=== PATIENT | female | born 1985 | race Caucasian/White ===

== ENCOUNTER → 2017-04-09 | Outpatient (CLI) | payer OTHER ==
[~2017-04-09] MED LIST: CYCL10TA6 PO
[2017-04-09 15:35] LABS: BASO % 0.2 %; BASO ABS # 0.03 K/uL (0-0.2); COMPLETE YES; EOS % 1.4 %; HEMATOCRIT 38.1 % (37-47); IG% 0.2 %; LYMPH % 18.6 %; LYMPH ABS # 2.26 K/uL (1.2-3.4); MEAN CELL VOLUME 88.8 fL (80-100); MEAN CORPUSCULAR HEMOGLOBIN 30.8 pg (25-34); MEAN CORPUSCULAR HGB CONC 34.6 g/dl (32-36); MEAN PLATELET VOLUME 10.4 fL (7.4-10.4); MONO % 8.2 %; NEUT % 71.4 %; PLATELET COUNT 222 K/uL (130-400); RED BLOOD COUNT 4.29 M/uL (4.2-5.4); WHITE BLOOD COUNT 12.12 K/uL (4.8-10.8)
== END | disposition home or self-care (01) ==
LOC: C.LAB1850 14:38
PROVIDERS: ATTEND Obstetrics & Gynecology
DX: Z34.00 Encounter for supervision of normal first pregnancy, unspecified trimester (principal)

== ENCOUNTER → 2017-04-09 | Outpatient (CLI) | payer OTHER ==
[2017-04-09 16:17] LABS: URINE APPEARANCE CLEAR (CLEAR); URINE BILIRUBIN NEG (NEG); URINE COLOR YELLOW; URINE NITRITE NEG (NEG); URINE PH 6.5 (4.5-7.5); URINE SPECIFIC GRAVITY 1.014 (1.000-1.030); UROBILINOGEN NEG (NEG)
[2017-04-09 16:23] LABS: MANUAL MICROSCOPIC REQUIRED? NO; REVIEW REQ? NO
[2017-04-11 20:51] LABS: CHLAMYDIA TRACH RNA*** NOT DETECTED (NOT DETECTED); GC (NEIS GONORRHOEAE)RNA** NOT DETECTED (NOT DETECTED)
== END | disposition home or self-care (01) ==
LOC: C.LABSPEC 15:48
PROVIDERS: ATTEND Obstetrics & Gynecology
DX: Z34.00 Encounter for supervision of normal first pregnancy, unspecified trimester (principal)

== ENCOUNTER → 2017-06-09 | Outpatient (CLI) | payer OTHER ==
[2017-06-09 13:54] LABS: GTGD 50 Grams
== END | disposition home or self-care (01) ==
LOC: C.LAB1850 11:38
PROVIDERS: ATTEND Obstetrics & Gynecology
DX: Z34.00 Encounter for supervision of normal first pregnancy, unspecified trimester (principal)

== ENCOUNTER → 2017-09-09 | Outpatient (CLI) | payer OTHER | END | disposition home or self-care (01) | LOC: C.LAB1850 08:02 | PROVIDERS: ATTEND Obstetrics & Gynecology | DX: O28.1 Abnormal biochemical finding on antenatal screening of mother (principal) ==

== ENCOUNTER → 2017-10-24 | Outpatient (CLI) | payer OTHER ==
[~2017-10-24] MED LIST changes: +PREN1TAB29
== END | disposition home or self-care (01) ==
LOC: C.LABSPEC 17:39
PROVIDERS: ATTEND Obstetrics & Gynecology
DX: Z34.03 Encounter for supervision of normal first pregnancy, third trimester (principal)

== ENCOUNTER 2017-11-23 11:29 | Inpatient (IN) | payer OTHER ==
[~2017-11-23] VITALS: Ht 160 cm; Wt 97.3 kg
[~2017-11-23 11:29] MED LIST changes: -PREN1TAB29
[2017-11-23] MEDS ORDERED: LACTATED RINGER'S 1000ML 1,000 ML IV PRN (15:20)
[2017-11-23] MEDS ORDERED: PREN1TAB29 (15:31)
[2017-11-23 15:32] VITALS: Ht 160 cm; Wt 97.3 kg
[2017-11-23] MEDS: LACTATED RINGER'S 1000ML 1,000 ML IV SCH ×2 (15:48→20:43)
[2017-11-23 15:54] LABS: HEMATOCRIT 40.9 % (37-47); HEMOGLOBIN 13.9 g/dL (12.0-16.0); MEAN CELL VOLUME 89.5 fL (80-100); MEAN CORPUSCULAR HEMOGLOBIN 30.4 pg (25-34); MEAN PLATELET VOLUME 11.8 fL (7.4-10.4); PLATELET COUNT 139 K/uL (130-400); RED CELL DISTRIBUTION WIDTH CV 15.2 % (11.5-14.5); RED CELL DISTRIBUTION WIDTH SD 48.7 fL (36.4-46.3); WHITE BLOOD COUNT 17.41 K/uL (4.8-10.8)
[2017-11-23] MEDS ORDERED: BUTORPHANOL TARTRATE 1 MG/ML VIAL IV ONE (20:00)
[2017-11-23] MEDS ORDERED: BUPIVACAINE 0.25% 30 ML VIAL ONE (20:22)
[2017-11-23] MEDS ORDERED: EpHEDrine SULFATE INJ 50 MG/ML AMP ONE (20:23)
[2017-11-23] MEDS ORDERED: FENTANYL CITRATE INJ 50 MCG/1 ML 2 ML VIAL ONE (20:24)
[2017-11-23] MEDS ORDERED: FENTANYL 2MCG/ML ROPIV 1.25MG/ML 100ML BAG EPI ONE (20:24)
[2017-11-23] MEDS ORDERED: LACTATED RINGER'S 1000ML 500 ML IV PRN (20:52)
[2017-11-23] MEDS ORDERED: NALOXONE HCL INJ 1 MG in SODIUM CHLORIDE 0.9% 1000ML 1,000 ML IV PRN (20:52)
[2017-11-23] MEDS ORDERED: NALOXONE HCL INJ 0.4 MG/1 ML VIAL/CARP IV PRN (21:00)
[2017-11-23] MEDS ORDERED: DiphenhydrAMINE HCL 50 MG/ML VIAL IV PRN (21:00)
[2017-11-23] MEDS ORDERED: EpHEDrine SULFATE INJ 50 MG/ML AMP IV PRN (21:00)
[2017-11-23] MEDS ORDERED: FENTANYL 2MCG/ML ROPIV 1.25MG/ML 100ML BAG EPI PRN (21:00)
[2017-11-23] MEDS ORDERED: NALBUPHINE HCL INJ 10 MG/ML AMP IV PRN (21:00)
[2017-11-23] MEDS ORDERED: ONDANSETRON INJ 2 MG/ML 2 ML VIAL IV PRN (21:00)
[2017-11-24] MEDS ORDERED: LACTATED RINGER'S 1000ML 500 ML IV PRN (00:27)
[2017-11-24] MEDS ORDERED: OXYTOCIN 30 UNITS/500ML NSS IV PRN ×2 (00:30→06:30)
[2017-11-24] MEDS ORDERED: NURSING VERBAL MED ORDER ONE ×2 (00:30→02:45)
[2017-11-24] MEDS ORDERED: CALCIUM CARBONATE 500 MG CHEWABLE PO PRN (00:45)
[2017-11-24] MEDS: LACTATED RINGER'S 1000ML 1,000 ML IV SCH (02:43)
[2017-11-24] MEDS ORDERED: DIPHTHERIA/TETANUS/PERTUSSIS 0.5 ML SYR/VIAL IM. ONE (06:30)
[2017-11-24] MEDS ORDERED: OXYCODONE/ACETAMINOPHEN 5-325 TAB PO PRN (06:30)
[2017-11-24] MEDS ORDERED: HYDROCORTISONE ACETATE 25 MG SUPP PR PRN (06:30)
[2017-11-24] MEDS ORDERED: BENZOCAINE 20% AER SPR 82.5 GM CAN EXT PRN (06:30)
[2017-11-24] MEDS ORDERED: LANOLIN OINT EXT PRN (06:30)
[2017-11-24] MEDS ORDERED: ACETAMINOPHEN 325 MG TAB PO PRN (06:30)
[2017-11-24] MEDS: IBUPROFEN 600 MG TAB PO PRN ×3 (07:52→23:11)
[2017-11-24] MEDS: PRENATAL VITAMIN TAB PO SCH (08:00)
[2017-11-24] MEDS: DOCUSATE SODIUM 100 MG CAP PO SCH ×2 (08:00→19:36)
--- NOTE | 2017-11-24 08:52 | Anesthesia Procedure Note ---
Anesthesia Epidural Removal Nt Date & Time Nov 24, 2017 at 08:52 Vital Signs Pain Intensity: 4.0 Notes Mental Status: alert / awake / arousable, participated in evaluation Nausea / Vomiting: adequately controlled Pain: adequately controlled Airway Patency, RR, SpO2: stable & adequate BP & HR: stable & adequate Hydration State: stable & adequate Neuraxial Anesthesia: was administered Anesthetic Complications: no major complications apparent, pt satisfied with anesthetic care Epidural: removed without complications, with tip intact
[2017-11-24 09:30] VITALS: BP 141/82; PULSE 134; TEMP 36.8; O2SAT 98
[2017-11-24 12:20] VITALS: BP 124/81; PULSE 107; TEMP 36.9; O2SAT 98
[2017-11-24 15:35] VITALS: BP 137/66; PULSE 123; TEMP 36.9
[2017-11-24 19:35] VITALS: BP 118/66; PULSE 105; TEMP 36.4
--- NOTE | 2017-11-24 19:41 | Discharge Instructions ---
Discharge Instructions Date of Service Nov 24, 2017. Admission Reason for Admission: Check Labor Discharge Discharge Diagnosis / Problem: Vaginal Delivery Discharge Goals Goal(s): Routine recovery after delivery Medications Continue Dispensed Medications: supercream, dermaplast, tucks, lansinoh Activity Recommendations Activity Limitations: per Instructions/Follow-up section . Instructions / Follow-Up Instructions / Follow-Up ACTIVITY RECOMMENDATIONS: * Gradual return to full activity over the next 2-3 weeks. * No lifting - nothing heavier than baby over the next 2-3 weeks. * Do not engage in vigorous exercise, sexual activity or sports until cleared by your physician. * Do not drive or operate any motorized equipment until cleared by your physician. * You may shower/bathe daily. MEDICATIONS: For discomfort or pain, you may use Acetaminophen (Tylenol), Ibuprofen (Advil), or Naproxen (Aleve) following the package directions. For constipation you may use Colace following the package directions. BREAST CARE: If you are not breast feeding: * Wear a supportive bra 24 hours a day for one to two weeks. * Avoid stimulating your breasts and nipples as much as possible during the first few weeks after delivery. * When taking a shower, have the warm water hit your back, not breasts. * When your breasts feel full, apply ice packs. Usually three to four times a day helps ease the discomfort. * Take a mild pain medication (Tylenol / Motrin) when you are uncomfortable. If breast feeding: * Use breast milk to lubricate nipples. Lansinoh cream may be used for sore nipples. You do not need to remove cream prior to breast feeding. If using a different brand of cream, check the label for directions regarding removal of cream prior to nursing. * Wear a supportive bra. * If having problems with breasts or breast feeding, call a sales operations consultant or your health care provider. EPISIOTOMY CARE: After delivery, if you have an episiotomy (stitches), the following steps will ease discomfort and aid healing. * For the first 24 hours after delivery, place ice packs next to your episiotomy to help reduce swelling. * After the first 24 hour-period, sitz baths, either portable or in the tub, are suggested. A shower with a shower arm sprayed over the episiotomy may be comforting. * Danni care should be done after each voiding and bowel movement. Squirt warm water from a plastic bottle over the perineum (region of the body between the anus and urinary opening) and pat dry. * Use Dermoplast to ease discomfort. Shake container. [place] directly over the episiotomy. Place a Tucks on a clean sanitary pad next to your episiotomy. SPECIAL CARE INSTRUCTIONS: When you are discharged from the hospital, it is important for you to follow the instructions listed below: * During the first week at home, you should be able to care for yourself and your baby. In addition, the usual light household activities are encouraged. * Limit your activities to the way you feel. Do not try to clean the house or move furniture. Be sensible. * If you actively engage in sports and have done so up until the time of your delivery, you may resume these activities as soon as you feel able. This may take up to one month or even longer. Use good judgment. * Continue to take your vitamins for at least six weeks after the of your baby. * Your diet need not be limited unless you were on a special diet before your delivery. Breast-feeding mothers need around 2500 calories per day and at least 64-80 ounces of fluid per day (8 to 10 glasses). * You should eat foods from the four major food groups. Crash diets or fad diets are to be avoided. Eating lean meats, fresh fruits and vegetables, low-fat dairy products, high fiber foods and a regular exercise program, will help you get back to your pre- weight without putting your health at risk. * Constipation is sometimes a problem after delivery. Take a mild laxative as needed. If breast feeding, Milk of Magnesia is acceptable to use. You may use a suppository or Fleets enema if no episiotomy. * A daily shower or tub bath is suggested. Be sure to thoroughly and gently dry the perineum. * A bloody vaginal discharge will usually continue until around four weeks post . A small amount of bleeding may continue for as long as six weeks. Vaginal discharge changes from the bright red bleeding after delivery to pink then brownish and finally yellowish-pink before becoming white and disappearing. * Bleeding may increase with activity. Your first period may come in 4-8 weeks. If you are breast feeding, your period may be delayed even longer. * [place] (sex) can begin whenever both you and your partner feel comfortable and do not have any form of genital infection. It is recommended that you wait at least six weeks for internal and external healing to occur. If you have questions, please talk to your health care practitioner. A condom should be used to prevent infection and . * Foreplay, gentle intercourse and lubrication is very important the first several times to prevent pain. A water-based lubricant such as K-Y jelly or Astroglide may be used. * If you have RH negative blood and your baby is RH positive, you will receive RHOGAM by injection prior to discharge. The nurse will give you a card to keep with you that has the date and place that you received RHOGAM after delivery. * During your care, you had a Rubella screen done to check for the presence of rubella antibodies in your blood. If your test was negative, you will receive a Rubella vaccine prior to discharge. This vaccine may cause a fever, soreness at the injection site and flu-like symptoms. If these symptoms persist, notify your health care practitioner. is not advised for one month after a Rubella vaccine. * Verbalizes understanding of car seat law as reviewed with patient nursing. * Car Seat hand-out given and reviewed with patient by nursing. * Shaken baby information reviewed with patient by nursing. Call you doctor if: * Heavy bleeding (saturating several pads an hour) or passing clots the size of your fist. * A fever >101 degrees F (38.3 degrees C) on two occasions four hours apart and /or chills. * Unusual pain in the pelvic or vaginal areas. * "Baby Blues" lasting longer than two weeks. If you have any questions or concerns, call your health care practitioner at . FOLLOW UP VISIT: * Please call the office at to schedule a 6 week examination. It is important you keep this appointment. It is important for you to make arrangements for either yearly or twice yearly check-ups thereafter. Current Hospital Diet Patient's current hospital diet: Regular OB Diet Discharge Diet Recommended Diet: Regular Diet Pending Studies Studies pending at discharge: no Medical Emergencies . Who to Call and When: Medical Emergencies: If at any time you feel your situation is an emergency, please call 911 immediately. . Non-Emergent Contact Non-Emergency issues call your: Primary Care Provider . . "Provider Documentation" section prepared by Martin Veras. . VTE Core Measure Inpt VTE Proph given/why not?: Treatment not indicated
[2017-11-24 23:30] VITALS: BP 118/68; PULSE 99; TEMP 36.5
[2017-11-25 04:00] VITALS: BP 101/69; PULSE 97; TEMP 36.8
--- NOTE | 2017-11-25 06:34 | Progress Note ---
Subjective Nov 25, 2017. Subjective conversation w/ patient (Pt seen and examined at bedside. Reports no acute overnight events), physical exam Ambulation: ambulating normally Voiding: no voiding problems Passing Gas: Yes Diet Tolerance: Regular Diet Lochia: Moderate (Reports decrease in lochia compared to yesterday) Feeding Type: Breast Feeding Pain: 0-1/10, well controlled with analgesia Review of Systems Constitutional: No fever, No chills, No sweats Respiratory: No cough, No wheezing, No shortness of breath Cardiac: No chest pain, No edema Abdomen: No pain, No nausea, No vomiting Female : No dysuria, No urinary frequency Objective Vital Signs Date Time Temp Pulse Resp B/P (MAP) Pulse Ox O2 Delivery O2 Flow Rate FiO2 11/25/17 04:00 36.8 97 18 101/69 (80) Room Air 11/24/17 23:30 Room Air 11/24/17 23:30 36.5 99 18 118/68 (85) 11/24/17 19:35 36.4 105 18 118/66 (83) Room Air 11/24/17 15:35 Room Air 11/24/17 15:35 36.9 123 16 137/66 (89) Room Air 11/24/17 12:20 36.9 107 20 124/81 (95) 98 Room Air 11/24/17 09:30 36.8 134 22 141/82 (101) 98 Room Air 11/24/17 09:30 Room Air Physical Exam General Appearance: WELL-APPEARING, WD/WN, NO APPARENT DISTRESS Respiratory/Chest: chest non-tender, lungs clear, normal breath sounds, no respiratory distress, no accessory muscle use Cardiovascular: regular rate, rhythm, no edema, no gallop, no murmur Abdomen: normal bowel sounds, non tender, soft Fundus: Firm, Non-Tender, Relation to Umbilicus (1cm below umbilicus) Extremities: normal range of motion, non-tender, normal inspection, no pedal edema, no calf tenderness Laboratory Results Last 24 Hours Test 11/25/17 04:44 Medications Current Inpatient Medications Medications (Trade) Dose Ordered Sig/Stephen Route Start Time Stop Time Status Last Admin Dose Admin Oxytocin (Pitocin IV) 30 units UD PRN IV 11/24/17 06:30 12/24/17 06:29 Benzocaine (Dermoplast Aero Spr) 1 appln PRN PRN EXT 11/24/17 06:30 12/24/17 06:29 11/24/17 10:33 1 APPLN Cocaine HCl (Supercream 0.870% Cr) BID PRN EXT 11/24/17 06:30 12/08/17 06:29 Hydrocortisone Acetate (Anusol Hc Supp) 25 mg BID PRN [place] 11/24/17 06:30 12/24/17 06:29 Lanolin (Lanolin Oint) PRN PRN EXT 11/24/17 06:30 12/24/17 06:29 Prenat Multivit/ Pilot Plant Research Technician/Iron/Folic Ac ( Vitamin Tab) 1 tab DAILY PO 11/24/17 08:00 12/24/17 07:59 Ibuprofen (Motrin Tab) 600 mg Q4H PRN PO 11/24/17 06:30 12/24/17 06:29 11/24/17 23:11 600 MG Acetaminophen (Tylenol Tab) 650 mg Q6H PRN PO 11/24/17 06:30 12/24/17 06:29 Oxycodone/ Acetaminophen (Percocet 5-325mg Tab) 1 tab Q4H PRN PO 11/24/17 06:30 12/08/17 06:29 Docusate Sodium (coLACE CAP) 100 mg BID PO 11/24/17 08:00 12/24/17 07:59 11/24/17 19:36 100 MG Assessment and Plan Post- Day#: 1 Continue Routine Care: A&P: s/p day 1 - vital signs reviewed, HR slightly elevated at 105, but rest of vitals WNL - Blood type A+, Rubella immune, GBS -ve - Patient is doing very well clinically - continue to encourage ambulation, breast feeding, monitor lochia, and control pain with ibuprofen prn Dr. Veras PGY 1 Resident Physician Supervision Note: I was present with Dr. Veras during the history and exam. I discussed the case with the resident and agree with the findings and plan as documented in the note. Any exceptions or clarifications are listed here: doing well. routine care. Documented By: Radha Perez Resident Tracking Resident Involvement: Resident Care Provided Care Provided: OB Delivery
[2017-11-25 07:30] VITALS: O2SAT 98
[2017-11-25 07:47] VITALS: BP 114/79; PULSE 98; TEMP 35.1; TEMP 36.4; O2SAT 95
[2017-11-25] MEDS: SUPERCREAM 0.870 % 15GM JAR EXT PRN (08:41)
[2017-11-25] MEDS: DOCUSATE SODIUM 100 MG CAP PO SCH ×2 (08:44→20:02)
[2017-11-25] MEDS: PRENATAL VITAMIN TAB PO SCH (08:44)
[2017-11-25 09:21] LABS: HEMATOCRIT 36.5 % (37-47); HEMOGLOBIN 12.3 g/dL (12.0-16.0)
[2017-11-25] MEDS: IBUPROFEN 600 MG TAB PO PRN (15:08)
[2017-11-25 16:30] VITALS: BP 125/83; PULSE 93; TEMP 36.4
[2017-11-25 23:05] VITALS: BP 116/78; PULSE 87; TEMP 36.7
--- NOTE | 2017-11-26 06:35 | Progress Note ---
Subjective Nov 26, 2017. Subjective conversation w/ patient (Patient seen and examined at bedside) Ambulation: ambulating normally Voiding: no voiding problems Passing Gas: Yes Diet Tolerance: Regular Diet Lochia: Moderate Feeding Type: Breast Feeding Pain: Little to no pain reported Review of Systems Constitutional: No fever, No chills, No sweats Respiratory: No cough, No shortness of breath Cardiac: + edema (mild bilateral foot edema), No chest pain Abdomen: No pain, No nausea, No vomiting Female : No dysuria Objective Vital Signs Date Time Temp Pulse Resp B/P (MAP) Pulse Ox O2 Delivery O2 Flow Rate FiO2 11/25/17 23:05 Room Air 11/25/17 23:05 36.7 87 18 116/78 (91) Room Air 11/25/17 16:30 36.4 93 18 125/83 (97) Room Air 11/25/17 16:30 Room Air 11/25/17 09:46 Room Air 11/25/17 07:47 36.4 98 20 114/79 (91) 95 Room Air 11/25/17 07:30 98 Room Air Physical Exam General Appearance: WELL-APPEARING, WD/WN, NO APPARENT DISTRESS Respiratory/Chest: chest non-tender, lungs clear, normal breath sounds, no respiratory distress, no accessory muscle use Cardiovascular: regular rate, rhythm, no edema, no gallop, no murmur Abdomen: normal bowel sounds, non tender, soft, no organomegaly, no pulsatile mass Fundus: Firm, Non-Tender, Relation to Umbilicus (2cm below) Extremities: normal range of motion, non-tender, normal inspection, no calf tenderness, + pedal edema Laboratory Results Last 24 Hours Test 11/25/17 09:05 Hemoglobin 12.3 g/dL Hematocrit 36.5 % Medications Current Inpatient Medications Medications (Trade) Dose Ordered Sig/Stephen Route Start Time Stop Time Status Last Admin Dose Admin Oxytocin (Pitocin IV) 30 units UD PRN IV 11/24/17 06:30 12/24/17 06:29 Benzocaine (Dermoplast Aero Spr) 1 appln PRN PRN EXT 11/24/17 06:30 12/24/17 06:29 11/24/17 10:33 1 APPLN Cocaine HCl (Supercream 0.870% Cr) BID PRN EXT 1/29/18 06:30 12/08/17 06:29 11/25/17 08:41 1 GM Hydrocortisone Acetate (Anusol Hc Supp) 25 mg BID PRN PA 11/24/17 06:30 12/24/17 06:29 Lanolin (Lanolin Oint) PRN PRN EXT 11/24/17 06:30 12/24/17 06:29 Prenat Multivit/ Engine Head Repairer/Iron/Folic Ac ( Vitamin Tab) 1 tab DAILY PO 11/24/17 08:00 12/24/17 07:59 11/25/17 08:44 1 TAB Ibuprofen (Motrin Tab) 600 mg Q4H PRN PO 11/24/17 06:30 12/24/17 06:29 11/25/17 15:08 600 MG Acetaminophen (Tylenol Tab) 650 mg Q6H PRN PO 11/24/17 06:30 12/24/17 06:29 Oxycodone/ Acetaminophen (Percocet 5-325mg Tab) 1 tab Q4H PRN PO 11/24/17 06:30 12/08/17 06:29 Docusate Sodium (coLACE CAP) 100 mg BID PO 11/24/17 08:00 12/24/17 07:59 11/25/17 20:02 100 MG Assessment and Plan Post- Day#: 2 Continue Routine Care: A&P: s/p day 2 - encourage ambulation & , Analgesia prn - monitor lochia - vitals reviewed and wnl - will review discharge instructions as she is ready for d/c later today Resident Physician Supervision Note: I interviewed and examined the patient. Discussed with Dr. Veras and agree with findings and plan as documented in the note. Any exceptions or clarifications are listed here: [None] Documented By: Tamera Madrigal Resident Tracking Resident Involvement: Resident Care Provided Care Provided: OB Delivery
[2017-11-26] MEDS: PRENATAL VITAMIN TAB PO SCH (08:14)
[2017-11-26] MEDS: DOCUSATE SODIUM 100 MG CAP PO SCH (08:14)
[2017-11-26] MEDS: IBUPROFEN 600 MG TAB PO PRN (08:18)
--- NOTE | 2017-11-26 08:30 | DELIVERY SUMMARY ---
DATE OF OPERATION: 11/24/2017 PREOPERATIVE DIAGNOSES: 1. Intrauterine at 41 weeks. 2. Early active labor. POSTOPERATIVE DIAGNOSES: 1. Intrauterine at 41 weeks. 2. Early active labor. 3. Thick meconium. PROCEDURES: 1. Epidural anesthesia. 2. Amniotomy. 3. Pitocin augmentation. 4. Normal spontaneous vaginal delivery. ANESTHESIA: Epidural. ESTIMATED BLOOD LOSS: 400 mL. DESCRIPTION OF PROCEDURE: The patient presented to labor and delivery in early active labor. She started at 1 and about 90%, progressed to 3 and 90% and was admitted. She was managed to expectantly for several hours and without change, she then underwent an epidural anesthesia. After epidural anesthesia, she underwent amniotomy and then eventually Pitocin augmentation. She really did not get a lot of Pitocin, only got 1 milliunit and then had a deceleration and was checked and found to be 7 cm, which was a good change and so, the Pitocin was discontinued. The fetus remained category 2 with occasional variable decels until she became complete complete and +1 to 2 station. She pushed for approximately an hour and half to deliver a viable female infant. There was no nuchal cord. The nose and mouth were both suctioned on the perineum and the rest of the baby was delivered without difficulty. There was a large copious amount of thick brown meconium delivered after the baby. The baby was somewhat limp. The cord was clamped and cut and the was taken over to the nurses for drying and attention. Cord blood and segment were obtained. The placenta was delivered spontaneously intact with a 3-vessel cord. Hemostasis was obtained with dilute Pitocin and fundal massage. A second-degree perineal laceration was repaired with 3-0 Vicryl in normal standard fashion. Apgars and weight were pending at the time of this note being dictated. However, mother and baby were doing at the end of the delivery. I attest to the content of the Intraoperative Record and any orders documented therein. Any exception s are noted below.
[2017-11-26 08:45] VITALS: BP 118/75; PULSE 86; TEMP 36.7
[2017-11-26] MEDS: SUPERCREAM 0.870 % 15GM JAR EXT PRN (13:48)
[2017-11-26 14:30] VITALS: BP_DIAS 75; PULSE 86; TEMP 36.7
== END 2017-11-26 14:36 | disposition home or self-care (01) | DRG 775 ==
LOC: C.OPB 11:29 → C.LD 11:30 → C.OPB 15:21 → C.LD 15:21 → C.OBG 11-24 11:42
PROVIDERS: ADMIT Obstetrics & Gynecology; ATTEND Obstetrics & Gynecology
PROC: 0KQM0ZZ Repair Perineum Muscle, Open Approach (ICD-10-PCS; principal; 2017-11-24)
PROC: 10E0XZZ Delivery of Products of Conception, External Approach (ICD-10-PCS; principal; 2017-11-24)
DX: O48.0 Post-term pregnancy (principal); O77.0 Labor and delivery complicated by meconium in amniotic fluid; O70.1 Second degree perineal laceration during delivery; Z23 Encounter for immunization; Z37.0 Single live birth; Z3A.41 41 weeks gestation of pregnancy

== ENCOUNTER → 2018-01-07 | Outpatient (CLI) | payer OTHER ==
[~2018-01-07] MED LIST changes: -CYCL10TA6 PO; +PREN1TAB29
== END | disposition home or self-care (01) ==
LOC: C.PAPS 15:04
PROVIDERS: ATTEND Obstetrics & Gynecology
DX: Z12.4 Encounter for screening for malignant neoplasm of cervix (principal); Z11.51 Encounter for screening for human papillomavirus (HPV)